=== PATIENT | female | born 1960 | race Caucasian/White ===

== ENCOUNTER 2016-09-25 12:56 | Emergency (ER) | payer SELFPAY ==
[~2016-09-25] VITALS: Ht 157.5 cm; Wt 40.5 kg
[~2016-09-25 12:56] MED LIST: CELE200C PO; CYA1000I IM; HYDR-3825 PO; OXYC5CAP4 PO; PREN-100 PO
[2016-09-25 13:12] VITALS: BP 115/75; PULSE 112; RESP 24; O2SAT 97
--- NOTE | 2016-09-25 13:36 | DRSVH ---
PROCEDURE: X-RAY CHEST, TWO VIEWS ([id number]) INDICATIONS: shortness of breath TECHNIQUE: 2 views of the chest were acquired. COMPARISON: [facility], , CHEST 2 VIEW, 07/14/2013, 15:14. FINDINGS: Surgical changes and devices: None. Lungs and pleura: No pleural effusions or pneumothorax. Severe emphysema. New mild patchy opacity at the right lateral lung base. Mediastinum: Mediastinal contours are normal. Heart size is normal. Bones and chest wall: No suspicious bony abnormalities. Soft tissues appear unremarkable. IMPRESSION: New, mild right lateral basilar scarring versus pneumonia. Continued plain film surveilla nce is recommended to ensure resolution, and to exclude underlying or central malignancy. Dictated by: Jose Keating M.D. on 09/25/2016 at 13:34 Approved by: Jose Keating M.D. on 09/25/2016 at 13:35
[2016-09-25 13:52] LABS: BASOPHILS % (AUTO) 0.4 % (0-3); EOSINOPHILS % (AUTO) 0.9 % (0-5); MONOCYTES % (AUTO) 9.6 % (4-12); Mean Corpuscular Hemoglobin 29.7 pg (27.0-35.0); Mean Corpuscular Volume 89.4 fL (81-100); NEUTROPHILS % (AUTO) 73.9 % (40-74); Platelet Count 512 bil/L (150-400)
--- NOTE | 2016-09-25 15:00 | ED.REPORT ---
HPI-General Illness Date of Service Sep 25, 2016 ED Provider: Lázaro Martin MD The patient is a 56 year old female with history of asthma, who presents to the emergency department complaining of dyspnea. The patient has also experienced nasal congestion, productive cough, fevers, chills, and generalized body aches. She is unable to lay flat due to her breathing. She was seen by her doctor on Sunday and placed on 4 days of azithromycin. She is currently on her last day of antibiotics but has not gotten any better. She has used her Albuterol inhaler with some relief. She denies diaphoresis, extremity pain or extremity swelling. She has noticed when she urinates that her urine feels "hot." Nursing Notes Stated Complaint: DIFFICULTY BREATHING Chief Complaint: Respiratory Distress Nursing Notes Reviewed: Yes Allergies: Coded Allergies: No Known Allergies (Unverified , 09/25/16) Scheduled Amoxicillin/Clav K 875-125 mg (Augmentin 875-125 mg) 1 Each Tablet 1 TABLET PO BID Cyanocobalamin (Cyanocobalamin Injection) 1,000 Mcg/1 Ml Vial 1,000 MCG IM Monthly Prednisone (PredniSONE) 20 Mg Tablet 40 MG PO DAILY Vits #90/Iron Fum/FA ( Formula Tablet) 1 Each Tablet 1 EACH PO DAILY Scheduled PRN Celecoxib (Celebrex) 200 Mg Capsule 200 MG PO DAILY PRN PRN For Pain Hydrocodone-Acetaminophen 7.5-325 mg (Hydrocodone-Acetaminophen 7.5-325 mg) 1 Each Tablet 1 TABLET PO Q4H PRN PRN For Pain oxyCODONE (oxyCODONE) 5 Mg Capsule 5 MG PO Q4H PRN PRN For Pain General Time Seen by MD: 14:58 Chief Complaint Other (dyspnea) Hx Obtained From: Patient Arrived By: Walk-in Sudden in Onset?: No Onset Occurred: 4 days ago Symptom Duration: Since onset Severity: Current: Moderate Severity: Maximum: Moderate Recent Healthcare: No recent hospitalization, Recent doctor visit Similar Sx Previous: No Past Medical History Past Medical History Asthma Family History Noncontributory Smoking History Former Smoker Social History Other Social History: Local resident Occupation Works in a dental office Ambulatory Status Independent Review of Systems Full Review of Systems Constitutional: Reports: Chills, Fever Ears / Nose / Throat: Reports: Nasal congestion Respiratory: Reports: Prod cough, clear, Shortness of breath Female: Reports: Dysuria Musculoskeletal: Reports: Myalgia, Denies: Extremity pain, Extremity swelling Skin: Denies Diaphoresis Complete sys rev & neg: except as marked. Physical Exam Vital Signs Vital Signs Date Time Temp Pulse Resp B/P Pulse Ox O2 Delivery O2 Flow Rate FiO2 09/25/16 16:13 37.1 116 18 135/78 97 Room Air 09/25/16 16:13 37.1 105 18 134/78 95 Room Air 09/25/16 15:30 105 18 95 Room Air 09/25/16 15:19 37.1 107 18 134/78 97 Room Air 09/25/16 13:12 37.3 112 24 115/75 97 Room Air Initial VS: Reviewed Neck: Supple, Non-tender, Full range of motion Lymphatic: No lymphadenopathy Extremities: Vascular intact, Neuro intact, No swelling, No tenderness Skin: Warm, Dry, No cyanosis Neurologic: Alert, Oriented, Nonfocal Psychiatric: Mood/affect normal, Behavior normal, Normal thought content General/Constitutional: Awake, Alert, Cooperative ENT: Airway patent, Mucous membranes moist, Pharynx NL, No peritonsillar abscess, Tympanic membs NL, Ext aud canal NL, Mastoid area NL Sinus: Positive: Tender frontal L, Tender frontal R, Tender maxillary L, Tender maxillary R, Tender moderate No abnormal discharge. Uvula midline. Respiratory / Chest: Breath sounds = bilat, No respiratory distress Wheezing / Retractions: Positive: Prolonged exp phase, Wheezing expiratory Coarse breath sounds bilaterally Cardiovascular: Heart rate NL, Regular rhythm, Heart sounds NL, No gallop, No murmurs, No rubs, Cap refill not delayed, Peripheral circulation NL Abdomen: Atraumatic, Soft, Non-tender, No guarding, No rebound, BS normoactive , No distention Lower Extremity / Pelvis / MS: Neurologic intact, Vascular intact, No edema No calf swelling or tenderness Interpretation & Diagnostics Lab Results Interpretation Result Diagram: 09/25/16 1340 09/25/16 1340 Test 09/25/16 13:40 09/25/16 13:50 09/25/16 15:15 White Blood Count 8.0th/mm3 (3.8-10.1) Red Blood Count 4.07mil/mm3 (3.90-5.20) Hemoglobin 12.1g/dL (12.0-15.6) Hematocrit 36.4% (35.0-46.0) Mean Corpuscular Volume 89.4fL (81-100) Mean Corpuscular Hemoglobin 29.7pg (27.0-35.0) Mean Corpuscular Hemoglobin Concent 33.2% (32.0-37.0) Red Cell Distribution Width 14.7% (12.3-15.4) Platelet Count 512bil/L (150-400) Neutrophils (%) (Auto) 73.9% (40-74) Lymphocytes (%) (Auto) 14.9% (14-46) Monocytes (%) (Auto) 9.6% (4-12) Eosinophils (%) (Auto) 0.9% (0-5) Basophils (%) (Auto) 0.4% (0-3) Sodium Level 137mEq/L (134-144) Potassium Level 4.4mEq/L (3.5-5.2) Chloride Level 97mEq/L (97-108) Carbon Dioxide Level 25mmol/L (18-29) Blood Urea Nitrogen 11mg/dL (6-24) Creatinine 0.66mg/dL (0.57-1.00) Estimat Glomerular Filtration Rate 132mL/min (>59) Glucose Level 127mg/dL (60-99) Calcium Level 9.5mg/dL (8.5-10.1) Total Bilirubin 0.3mg/dL (0.0-1.2) Aspartate Amino Transf (AST/SGOT) 17U/L (0-50) Alanine Aminotransferase (ALT/SGPT) 12U/L (0-32) Alkaline Phosphatase 80U/L (25-150) Total Protein 7.3g/dL (6.4-8.4) Albumin 4.2g/dL (3.4-5.0) Hold [place]on Top Tube Received (Received) Troponin T < 0.010ug/L (0.0-0.011) ECG Interpretation ECG Interpretation: Sinus tachycardia with a rate of 107 Otherwise normal EKG Time: 15:09 Interpreted by: ED physician X-Ray Chest Interpretation Chest Xray Interpretation: IMPRESSION: New, mild right lateral basilar scarring versus pneumonia. Continued plain film surveillance is recommended to ensure resolution, and to exclude underlying or central malignancy. Dictated by: Jose Keating M.D. on 09/25/2016 at 13:34 Interpretation / Wet Read by: Interpret - Radiologist Re-Eval/Medical Decision Med Decision/Clinical Course The patient is a 56 year old female with history of asthma, who presents to the emergency department complaining of dyspnea. The patient has also experienced nasal congestion, productive cough, fevers, chills, and generalized body aches. She is unable to lay flat due to her breathing. She was seen by her doctor on Sunday and placed on 4 days of azithromycin. She is currently on her last day of antibiotics but has not gotten any better. She has used her Albuterol inhaler with some relief. She denies diaphoresis, extremity pain or extremity swelling. She has noticed when she urinates that her urine feels "hot." Here in the ER the pt is afebrile and hemodynamically stable though borderline tachycardic with HR in the 100s. Urination reveals significant wheezing and coarse breath sounds throughout. CXR: New, mild right lateral basilar scarring versus pneumonia. Continued plain film surveillance is recommended to ensure resolution, and to exclude underlying or central malignancy. LABS: CBC unremarkable, CMP unremarkable Treated with DuoNeb and 40 mg Prednisone. Patient reported significant symptomatic improvement with bronchodilator therapy. Overall presentation most consistent with exacerbation of underlying asthma/COPD the setting of upper respiratory infection likely new developing pneumonia. I feel that she would benefit from a 5 day course of prednisone and she has been provided with an albuterol inhaler/spacer which she will use scheduled for the next 24-48 hours. Given that she has continued to have symptoms despite completing a course of azithromycin I will prescribe a 5 day course of Augmentin. She is advised to follow up closely with her primary care physician and return for any worsening symptoms. Her tachycardia resolved here in the emergency room. Patient has no nature risk factors for development of pulmonary embolism and examination reveals no findings suggestive of a DVT. I do not feel that workup cardiopulmonary embolism is indicated. Initial screening EKG demonstrates no acute ischemic changes and troponin is negative. Presentation not suggestive of acute coronary syndrome and further ACS workup not indicated given clinical picture. Prior to discharge follow-up and return precautions were reviewed in detail with the patient who verbalized understanding and agreement with the plan. The patient was discharged in stable condition. Source of Hx: Old records Time of Eval: 15:17 Re-Evaluation/Progress Note: Discussed plan for breathing treatment and steroids. Time of Eval: 16:01 Re-Evaluation/Progress Note: Rechecked the patient. She is feeling better. Discussed plan for discharge. Counseled Regarding: Diagnosis, Lab results, Need for follow-up, When/why to return to ED Discharge & Departure Primary Impression: Pneumonia Pneumonia type: due to unspecified organism Laterality: right Lung location : lower lobe of lung Qualified Code: J18.1 - Lobar pneumonia, unspecified organism Additional Impressions: Sinusitis Sinusitis location: unspecified location Chronicity: acute Recurrence: not specified as recurrent Qualified Code: J01.90 - Acute sinusitis, unspecified Asthma exacerbation Tachycardia Wheezing History of tobacco abuse Disposition: Home Discharge Condition All VS Reviewed: Yes Condition: Stable Patient Instructions: Community-acquired Pneumonia (ED) Additional Instructions: Thank you for seeking care at the emergency room. It is difficult for us to make definitive diagnoses in the ED but we believe that you are experiencing a sinus infection and pneumonia. Our primary goal today in the ED was to evaluate you for any life-threatening conditions. Your evaluation was reassuring. Take the last tablet of the azithromycin. Complete the course of the Augmentin and Prednisone as prescribed. Continue to use your albuterol inhaler with spaced every 2-4 hours in the next 24-48 hours. You should follow-up with your primary doctor in the next week for re- evaluation. You should return to the ED immediately if you develop increased work of breathing, fevers, vomiting, chest pain, lightheadedness, weakness or any other concerning signs or symptoms. Thank you for letting us partake in your care today. Referrals: Bryant Gallagher MD (PCP) [facility] Attestation Portions of this note were transcribed by Judie Lopez. I, Dr. Martin personally performed the history, physical exam and medical decision-making; I reviewed and confirmed the accuracy of the information in the transcribed note. Signed by: Юлия Potts, 09/25/2016 at 1605. copies to: Bryant Gallagher MD, Beck O MD Sep 25, 2016 15:00 Judie Lopez Sep 25, 2016 15:06
[2016-09-25 15:19] VITALS: BP 134/78; PULSE 107; RESP 18; O2SAT 97
[2016-09-25] MEDS ORDERED: predniSONE 20 mg Tablet PO ONE (15:20)
[2016-09-25] MEDS ORDERED: Albuterol-Ipratropium 3 mL Inhalation Solution NEB ONE (15:20)
[2016-09-25] MEDS ORDERED: AMOX-366 PO (15:21)
[2016-09-25] MEDS ORDERED: PRE20 PO (15:22)
[2016-09-25] MEDS ORDERED: Albuterol HFA 60 Puff 8 Gm Inhaler INHALATION PRN (15:25)
[2016-09-25 15:30] VITALS: PULSE 105; RESP 18; O2SAT 95
[2016-09-25 16:13] VITALS: BP_SYST 134; BP_SYST 135; BP_DIAS 78; PULSE 105; PULSE 116; RESP 18; O2SAT 95; O2SAT 97
== END 2016-09-25 16:13 | disposition home or self-care (01) ==
LOC: SED 12:56
DX: J18.1 Lobar pneumonia, unspecified organism (principal); J01.90 Acute sinusitis, unspecified; J45.909 Unspecified asthma, uncomplicated; R00.0 Tachycardia, unspecified; Z87.891 Personal history of nicotine dependence; Z79.899 Other long term (current) drug therapy
CPT/HCPCS: 36415; 71020; 80053; 84484; 85025; 93005; 94664; 99285; J7620